=== PATIENT | male | born 1980 ===

== ENCOUNTER 2025-07-22 14:27 | Outpatient (AMB) | payer OTHER, SELFPAY ==
--- NOTE | 2025-07-22 14:28 | A.OFFVIS_ITS ---
Vital Signs 07/22/25 14:32 Height 5 ft 5 in Weight 191 lb 12.835 oz BMI 31.9 BP 110/88 Position Sitting Pulse 87 Pulse Source Pulse Oximeter Pulse Oximetry (%) 98 Oxygen Delivery Method Room Air Intake Visit Reasons: DM Intake Note: NEW Patient presents today to establish treatment for Type 1 Diabetes Mellitus: Glucose data available (sensor/reader/meter/pump): Yes / No Last Diabetic eye exam was on: DUE Last Podiatry exam was on: Patient does not see a Processing Spec Most recent HbA1c: 9.4%, 07/22/2025 Random Glucose: 256 mg/dL [employer] Superintendent Required: No Accompanied by: Self / Same As Patient Allergies Penicillins Adverse Reaction (Unknown, Verified 07/22/25 14:35) Unknown Medication List - Last Reconciled 07/22/25 by Keagan Francis MD atorvastatin (Lipitor) 20 mg PO DAILY blood sugar diagnostic (FreeStyle Lite Strips) As directed blood-glucose meter (FreeStyle Vincent Lite kit) As directed hydrochlorothiazide 25 mg PO DAILY insulin aspart U-100 (Novolog U-100 Insulin aspart) 10 units subcut TID insulin glargine (Lantus U-100 Insulin) 25 units subcut DAILY lamotrigine 150 mg PO DAILY lisinopril 5 mg PO DAILY metformin 500 mg PO BID omeprazole 20 mg PO DAILY pen needle, diabetic As directed pen needle, diabetic As directed prazosin 2 mg PO BEDTIME quetiapine (Seroquel) 100 mg PO BEDTIME HPI Comments Details: 44 YO M who is seen in consultation for T2DM at the request of PCP. Initially diagnosed with T2DM in 8-9 yrs ago. [facility] Was initially started on treatment with metformin . Current regimen 25 units Glargine , Novolog 10 units TID . Metformin 1000 mg BID Checks sugars 4-5 times per day. Unfortunately, patient not bring log book, glucometer or sensor to appointment Reports low sugars once a wk .has sweating Treats lows with eat candy . Checks sugar after to ensure it is rising. Treats according to rule of 15's. Most recent A1C 9.4 , . Family history of T2DM in . Father had Type 2 DM - grandmother, uncle ,aunt Not Has eyes checked yearly, last eye exam last yr , denies retinopathy. Has neuropathy, last foot exam [],Not sees podiatry. Denies nephropathy, on MIGUEL ANGEL/ARB. UAC [] as measured on []. Has HLD, on statin. Denies CAD. [Had] diabetes education last yr at [facility] Medical History (Updated 07/22/25 @ 14:49 by Keagan Francis MD) Uncontrolled type 2 diabetes mellitus with hyperglycemia Surgical History (Updated 07/22/25 @ 14:35 by MERON Euceda) History of shoulder surgery Family History (Updated 07/22/25 @ 14:31 by MERON Euceda) Father No problems noted. Mother No problems noted. Social History (Updated 07/22/25 @ 14:36 by MERON Euceda) Alcohol intake: current Alcohol intake frequency: a few times a week Patient Tobacco Use Status: Current everyday Tobacco user Physical Exam Vital Signs: Last Vital Signs Pulse 87 07/22/25 14:32 BP 110/88 07/22/25 14:32 Pulse Ox 98 07/22/25 14:32 Oxygen Delivery Method Room Air 07/22/25 14:32 BMI result Body Mass Index 31.9 Absence of Cushingoid features. Absence of acromegalic features. Neck exam reveals nl size thyroid about 15 gms. No thyroid nodules palpable. No carotid bruits present. Lungs CTA. Heart S1 S2, Reg R/R. No M/R/ G. Skin exam reveals absence of vitiligo or acanthosis nigricans. Abdominal exam reveals Soft NT/ND with NA BS. No organomegaly present. Neck Other: . Extrem Other: Visual exam of foot performed. No ulcerations or open lesions. No onchomycosis, no callouses.Pulses 2 + distally Sensation intact to monofilament exam. Vibratory sensation sensed is intact with 128 Hz tuning fork Results AMB Hemoglobin A1c AMB Hemoglobin A1c 9.4 % Last Edit by MERON Euceda on 07/22/25 14:46 Results Reviewed Results Reviewed: Laboratory Last Values Glucose (Clinic) 256 mg/dL (60-115) H 07/22/25 14:37 Hgb A1c (Clinic) 9.4 % (4.0-6.0) H 07/22/25 14:43 Assessment & Plan Assessment & Plan (1) Uncontrolled type 2 diabetes mellitus with hyperglycemia: Code(s): E11.65 - Type 2 diabetes mellitus with hyperglycemia Category: Medical Plan: Is a 44-year-old male with a history of type 2 diabetes being treated with metformin and basal-bolus insulin with poor glycemic control and no known microvascular or macrovascular, complications Plan is to have the patient check his point of care several times a day or to use a sensor should just freestyle William 3+. Gavethe Patient a sample sensor and reader We will refer to family living educator and weight engineer. Not enough data today to make adjustments to the diabetic regimen. Went over correlation of poor glycemic control to development and progression of complications with the patient. We will have patient follow up with primary care diabetes team in 4 weeks. We will check lipid profile microalbumin to creatinine ratio obtain the basic metabolic panel and lipid profile that was previously done by the patient's primary care provider. Also made a referral to Ophthalmology. Lastly prescribed Baqimi glucagon rescue Orders: Orders AMB Hemoglobin A1c Today Z86.39 - Personal history of other endocrine, nutritional and metabolic disease Basic Metabolic Panel Today E11.65 - Type 2 diabetes mellitus with hyperglycemia Microalbumin, Random (w Creat) Today E11.65 - Type 2 diabetes mellitus with hyperglycemia Referrals Ophthalmology Referral E11.65 - Type 2 diabetes mellitus with hyperglycemia Diabetes Education Referral E11.65 - Type 2 diabetes mellitus with hyperglycemia Nutrition/Dietitian Referral E11.65 - Type 2 diabetes mellitus with hyperglycemia Medications: New FreeStyle William 3 Sensor (blood-glucose sensor) As directed change every 15 days 2 ea 5RF NS glucagon 3 mg/actuation (Baqsimi) 3 mg intranasal ONCE 2 ea 3RF Coding Level of Care Code Add On Problem Visit Only Diagnoses Uncontrolled type 2 diabetes mellitus with hyperglycemia E11.65
[2025-07-22 14:32] VITALS: BP 110/88; PULSE 87; O2SAT 98; BMI 31.9
[2025-07-22 14:41] LABS: Glucose, Whole Blood 256 mg/dL (60-115)
--- OUTSIDE RECORDS SUMMARY | 2025-07-22 17:53 | XMS_ITS | Clinical Summary ---
Author Organization [facility] Address [address] [place] [address] Phone Care Team Providers Care Fourth Officer Name Role Phone Nichole Youssef DIRECTOR OF ASSESSING Primary Care Provider [phone] Social History Tobacco Use Types Packs/Day Years Used Date Smoking Tobacco: Never Assessed Sex and Gender Information Value Date Recorded Sex Assigned at Male 09/03/2024 1:50 PM EST Legal Sex Male 4:56 PM EST Gender Identity Male 09/03/2024 1:50 PM EST Sexual Orientation Straight 09/03/2024 1: 50 PM EST Plan of Treatment Health Maintenance Due Date Last Done Comments Colorectal Cancer Screening: Colonoscopy 1979 Diabetes: Annual GFR (Glomer ular Filtration Rate) 1979 Diabetes: Annual Foot Exam 1989 Diabetes: Annual Retina Eye Exam 1989 DTaP,Tdap,and Td Vaccines (1 - Tdap) 1998 Hepatitis B Vaccines (1 of 3 - 19+ 3-dose series) 1998 Pneumococcal Vaccine: Pediat rics (0 to 5 Years) and At-Risk Patients (6 to 49 Years) (1 of 2 - PCV) 1998 HPV Vaccines (1 - 3-dose SCD M series) 2006 Depression Screening 08/01/2024 Cholesterol Screening (Lipid Panel) 09/03/2024 HIV Screening 09/03/2024 Hepatitis C Screening 09/03/2024 Social Influencers of Health Screening 09/03/2024 Diabetes: Annual Urine Albumin-Creatinine Ratio (uACR) 09/11/2024 Diabetes: Blood Sugar Contro l Test (HGBA1C) 09/11/2024 Hypertension/CHF/CAD Annual BMP Blood Test 09/11/2024 COVID-19 Vaccine (2 - 2024-2 6 season) 2025 10/28/2020 Influenza Vaccine (#1) 2025 08/08/2023 RSV Immunization Adult Patie nts (1 - 1-dose 75+ series) 2054 HIB Vaccines Aged Out No longer eligi ble based on patient's age to complete this topic Hepatitis A Vaccines Aged Out No long er eligible based on patient's age to complete this topic IPV Vaccines Aged Out No longer eligi ble based on patient's age to complete this topic MMR Vaccines Aged Out No longer eligi ble based on patient's age to complete this topic Meningococcal ACWY Vaccine Aged Out N o longer eligible based on patient's age to complete this topic Meningococcal B Vaccine Aged Out No l onger eligible based on patient's age to complete this topic RSV Immunization Patients Un gaurav 20 months Aged Out No longer eligible b ased on patient's age to complete this topic Varicella Vaccines Aged Out No longer eligible based on patient's age to complete this topic Insurance [facility] [place] [address] Care Teams Fourth Officer Relationship Specialty Start Date End Date Nichole Youssef FNP [address] [place], [place] [id number] [place] [address] PCP - General Family Medicine 09/03/24
== END 2025-07-22 15:17 | disposition home or self-care (01) ==
LOC: HO.ENCR 14:27
PROVIDERS: Visit Provider Internal Medicine Endocrinology, Diabetes & Metabolism
DX: Z86.39 Personal history of other endocrine, nutritional and metabolic disease (principal); E11.65 Type 2 diabetes mellitus with hyperglycemia
CPT/HCPCS: 99214

== ENCOUNTER → 2025-07-22 14:27 | Outpatient (BNVA) | payer OTHER, SELFPAY | PROVIDERS: Visit Provider Internal Medicine Endocrinology, Diabetes & Metabolism | DX: E11.65 Type 2 diabetes mellitus with hyperglycemia (principal); Z86.39 Personal history of other endocrine, nutritional and metabolic disease; Z79.85 Long-term (current) use of injectable non-insulin antidiabetic drugs | CPT/HCPCS: 82947; 83036; 99212 ==